=== PATIENT | female | born 1970 ===

== ENCOUNTER 2021-01-07 13:29 | Outpatient (CLI) | payer MEDICAID | END 2021-01-07 13:30 | disposition EMS.NT | LOC: EMS 13:29 | DX: Z04.1 Encounter for examination and observation following transport accident (principal); M25.512 Pain in left shoulder ==

== ENCOUNTER 2021-02-18 14:31 | Outpatient (CLI) | payer OTHER ==
--- NOTE | 2021-02-18 16:15 | XRAY Report ---
PROCEDURE: Cervical Spine Complete INDICATIONS: CERV SP THOR SP TECHNIQUE: 5 view(s) of the cervical spine were acquired. COMPARISON: None. FINDINGS: Bones: No fractures or dislocations to the T1 level. The lateral masses of C1 appear intact on the odontoid view. No suspicious bony lesions. Flexion and extension views demonstrate normal range of motion with no subluxation. There are multilevel degenerative changes with anterior osteophytes from C4 through C7. There is disc space narrowing at C4-5, C5-6, and C6-7. Soft tissues: No prevertebral soft tissue swelling. IMPRESSION: 1. Cervical spondylosis with disc disease at C4-5, C5-6, and C6-7. 2. Full range of motion and no dynamic instability with flexion or extension. Reviewed by: Jalil Lay on 02/18/2021 4:13 PM PDT Approved by: Jalil Lay on 02/18/2021 4:13 PM PDT Station ID: [id number]
--- NOTE | 2021-02-18 16:16 | XRAY Report ---
PROCEDURE: Thoracic Spine 2 View INDICATIONS: CERV SP THOR SP TECHNIQUE: 3 views of the thoracic spine were acquired. COMPARISON: None. FINDINGS: Bones: No fractures or dislocations. No suspicious bony lesions. 12 pairs of ribs are noted, and a ppear intact where visualized. Soft tissues: No paravertebral stripe thickening. IMPRESSION: Normal thoracic spine. Reviewed by: Jalil Lay on 02/18/2021 4:14 PM PDT Approved by: Jalil Lay on 02/18/2021 4:14 PM PDT Station ID: [id number]
== END 2021-02-18 14:32 | disposition home or self-care (01) ==
LOC: DI.S 14:31
PROVIDERS: ATTEND Chiropractor
DX: M99.12 Subluxation complex (vertebral) of thoracic region (principal); M47.812 Spondylosis without myelopathy or radiculopathy, cervical region; M50.321 Other cervical disc degeneration at C4-C5 level